=== PATIENT | male | born 1950 ===

== ENCOUNTER → 2021-11-04 08:26 | Outpatient (BNVA) | payer MEDICARE, SELFPAY | PROVIDERS: PCP Internal Medicine; Visit Provider Psychiatry & Neurology Neurology | DX: G14 Postpolio syndrome (principal); R53.1 Weakness | CPT/HCPCS: 99202 ==

== ENCOUNTER 2022-02-06 07:57 | Outpatient (REF) | payer MEDICARE, SELFPAY ==
--- NOTE | 2022-02-06 | EMG_ITS ---
Left median and ulnar motor and sensory studies were performed, left radial sensory study was performed, and paraspinal muscles were tested with a needle. IMPRESSION: 1. 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 2. 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 3. No evidence of radiculopathy. Overall impression is suggestive of underlying peripheral neuropathy. MD DEVORAH Burton/SHARON / [id number]
== END 2022-02-06 07:58 | disposition home or self-care (01) ==
LOC: HO.NEURO 07:57
PROVIDERS: Visit Provider Psychiatry & Neurology Neurology
DX: G14 Postpolio syndrome (principal); R53.1 Weakness
CPT/HCPCS: 95885; 95909

== ENCOUNTER → 2022-05-14 08:18 | Outpatient (BNVA) | payer MEDICARE, SELFPAY | PROVIDERS: PCP Internal Medicine; Visit Provider Psychiatry & Neurology Neurology | DX: G14 Postpolio syndrome (principal); R53.1 Weakness | CPT/HCPCS: 99212 ==

== ENCOUNTER 2022-05-28 08:18 | Outpatient (REF) | payer MEDICARE, SELFPAY ==
--- NOTE | 2022-05-28 | EMG_ITS ---
Please see scanned EMG / Nerve Conduction Report. MTDD
== END 2022-05-28 08:19 | disposition home or self-care (01) ==
LOC: HO.NEURO 08:18
PROVIDERS: Visit Provider Psychiatry & Neurology Neurology
DX: G14 Postpolio syndrome (principal); R53.1 Weakness
CPT/HCPCS: 95886; 95913